=== PATIENT | male | born 1955 | race Caucasian/White ===

== ENCOUNTER 2020-11-23 19:59 | Inpatient (IN) | payer MEDICARE ==
[~2020-11-23] VITALS: Ht 195.6 cm; Wt 163.0 kg
[2020-11-23 20:38] LABS: HEMOGLOBIN 12.5 gm/dl (14.0-17.5); RED BLOOD COUNT 4.16 M/UL (4.20-5.50); WHITE BLOOD COUNT 8.9 K/UL (4.5-11.0)
[2020-11-23 20:55] LABS: BUN/CREATININE RATIO 23 (0-10)
[2020-11-24 04:44] LABS: HEMOGLOBIN 12.2 gm/dl (14.0-17.5); RED BLOOD COUNT 4.25 M/UL (4.20-5.50); WHITE BLOOD COUNT 8.7 K/UL (4.5-11.0)
[2020-11-24 04:53] LABS: BUN/CREATININE RATIO 21 (0-10)
[2020-11-24] MEDS ORDERED: MELATONIN5 M2 PO (10:30)
[2020-11-24] MEDS ORDERED: TRAMADOL HCL50 MG PO (10:31)
[2020-11-24] MEDS ORDERED: BUMETANIDE1 MG PO (10:32)
[2020-11-24] MEDS ORDERED: ALBUTEROL1.25 MG/3 INH (10:33)
[2020-11-24] MEDS ORDERED: ALLOPURINOL300 MG PO (10:33)
[2020-11-24] MEDS ORDERED: ASPIRIN EC81 MG PO (10:34)
[2020-11-24] MEDS ORDERED: ELIQUIS 5 MG TAB5 MG PO (10:34)
[2020-11-24] MEDS ORDERED: COLCRYS0.6 MG PO (10:36)
[2020-11-24] MEDS ORDERED: DILTIAZEM 24HR300 M1 PO (10:38)
[2020-11-24] MEDS ORDERED: CYMBALTA60 MG PO (10:39)
[2020-11-24] MEDS ORDERED: DOXAZOSIN MESYLA2 MG PO (10:39)
[2020-11-24] MEDS ORDERED: FLONASE ALLER15.8 ML (10:40)
[2020-11-24] MEDS ORDERED: GABAPENTIN400 MG PO ×3 (10:43→10:44)
[2020-11-24] MEDS ORDERED: GLIPIZIDE-METF1 EAC2 PO (10:45)
[2020-11-24] MEDS ORDERED: MOBIC7.5 MG PO (10:47)
[2020-11-24] MEDS ORDERED: HYDROCODON-ACE1 EAC6 PO (10:47)
[2020-11-24] MEDS ORDERED: DAILY VALUE1 EACH PO (10:48)
[2020-11-24] MEDS ORDERED: OMEPRAZOLE20 MG PO (10:48)
[2020-11-24] MEDS ORDERED: CRESTOR20 MG PO (10:49)
[2020-11-24] MEDS ORDERED: SILDENAFIL20 MG PO (10:50)
[2020-11-24] MEDS ORDERED: TIZANIDINE HCL4 MG PO (10:51)
[2020-11-24] MEDS ORDERED: VENTOLIN HFA 66.7 GM INH (10:58)
--- NOTE | 2020-11-24 17:40 | NUR ---
1630 NITRO D/C D/T HYPOTENSION 90/60
[2020-11-25 03:13] LABS: BORDETELLA PARAPERTUSSIS Not Detected (Not Detectd); BORDETELLA PERTUSSIS Not Detected (Not Detectd); CHLAMYDIA PNEUMONIAE Not Detected (Not Detectd); CORONAVIRUS HKU1 Not Detected (Not Detectd); CORONAVIRUS NL63 Not Detected (Not Detectd); CORONAVIRUS OC43 Not Detected (Not Detectd); CORONOAVIRUS 229E Not Detected (Not Detectd); HUMAN METAPNEUMOVIRUS Not Detected (Not Detectd); HUMAN RHINOVIRUS/ENTEROVIRUS Not Detected (Not Detectd); INFLUENZA A Not Detected (Not Detectd); INFLUENZA B Not Detected (Not Detectd); MYCOPLASMA PNEUMONIAE Not Detected (Not Detectd); PARAINFLUENZA VIRUS 1 Not Detected (Not Detectd); PARAINFLUENZA VIRUS 2 Not Detected (Not Detectd); PARAINFLUENZA VIRUS 3 Not Detected (Not Detectd); PARAINFLUENZA VIRUS 4 Not Detected (Not Detectd); RESPIRATORY SYNCYTIAL VIRUS Not Detected (Not Detectd)
[2020-11-25 03:32] LABS: HEMOGLOBIN 11.9 gm/dl (14.0-17.5); RED BLOOD COUNT 3.99 M/UL (4.20-5.50)
[2020-11-25 03:39] LABS: WHITE BLOOD COUNT 5.9 K/UL (4.5-11.0)
[2020-11-25 04:05] LABS: SARS-CoV-2 NOT DETECTED (Not Detectd)
--- NOTE | 2020-11-26 20:39 | NUR ---
Report given to Estela BEGUM on [place] [employer].
[2020-11-27 07:20] LABS: BUN/CREATININE RATIO 24 (0-10)
[2020-11-28 04:36] LABS: HEMOGLOBIN 11.1 gm/dl (14.0-17.5); RED BLOOD COUNT 3.8 M/UL (4.20-5.50); WHITE BLOOD COUNT 4.7 K/UL (4.5-11.0)
[2020-11-29 08:18] LABS: BUN/CREATININE RATIO 24 (0-10)
[2020-11-30] MEDS ORDERED: ZAROXOLYN/DIUL2.5 MG PO (12:31)
[2020-11-30] MEDS ORDERED: METOPROLOL SUC100 MG PO (12:42)
[2020-12-17] MEDS ORDERED: LASIX40 MG PO (12:55)
== END 2020-11-30 16:49 | disposition home health service (06) | DRG 291 ==
LOC: ER1 19:59 → CDU 22:37 → MED SURG 4 22:37 → CDU 11-24 12:19 → PROG CARE 11-24 14:24 → MED SURG 4 11-26 22:28
PROVIDERS: Family Medicine; Internal Medicine; Internal Medicine Cardiovascular Disease; Physician Assistant Medical; ADMIT Internal Medicine
DX: I11.0 Hypertensive heart disease with heart failure (principal); J96.21 Acute and chronic respiratory failure with hypoxia; J96.22 Acute and chronic respiratory failure with hypercapnia; Z20.822 Contact with and (suspected) exposure to COVID-19; I48.20 Chronic atrial fibrillation, unspecified; N17.9 Acute kidney failure, unspecified; Z68.41 Body mass index [BMI] 40.0-44.9, adult; I50.33 Acute on chronic diastolic (congestive) heart failure; I48.0 Paroxysmal atrial fibrillation; I27.20 Pulmonary hypertension, unspecified; I16.0 Hypertensive urgency; I25.10 Atherosclerotic heart disease of native coronary artery without angina pectoris; F41.9 Anxiety disorder, unspecified; G47.33 Obstructive sleep apnea (adult) (pediatric); J45.909 Unspecified asthma, uncomplicated; M10.9 Gout, unspecified; E78.5 Hyperlipidemia, unspecified; E11.9 Type 2 diabetes mellitus without complications; E66.01 Morbid (severe) obesity due to excess calories; Z79.01 Long term (current) use of anticoagulants; Z79.82 Long term (current) use of aspirin; Z79.899 Other long term (current) drug therapy; Z90.49 Acquired absence of other specified parts of digestive tract; Z82.49 Family history of ischemic heart disease and other diseases of the circulatory system; Z91.14 Patient's other noncompliance with medication regimen
CPT/HCPCS: 36415; 36600; 71045; 80048; 80053; 82550; 82553; 82803; 82962; 83605; 83735; 83874; 83880; 84484; 85025; 85027; 87040; 87633; 93005; 94640; 94660; 94664; 94760; 96374; 96375; 99285; J0696; J1940; U0002

== ENCOUNTER 2021-02-05 04:37 | Emergency (ER) | payer OTHER, MEDICARE ==
[~2021-02-05 04:37] MED LIST: ALBUTEROL1.25 MG/3 INH; ALLOPURINOL300 MG PO; ASPIRIN EC81 MG PO; BUMETANIDE1 MG PO; COLCRYS0.6 MG PO; CRESTOR20 MG PO; CYMBALTA60 MG PO; DAILY VALUE1 EACH PO; DILTIAZEM 24HR300 M1 PO; DOXAZOSIN MESYLA2 MG PO; ELIQUIS 5 MG TAB5 MG PO; FLONASE ALLER15.8 ML; GABAPENTIN400 MG PO; GLIPIZIDE-METF1 EAC2 PO; HYDROCODON-ACE1 EAC6 PO; LASIX40 MG PO; MELATONIN5 M2 PO; METOPROLOL SUC100 MG PO; MOBIC7.5 MG PO; OMEPRAZOLE20 MG PO; SILDENAFIL20 MG PO; TIZANIDINE HCL4 MG PO; TRAMADOL HCL50 MG PO; VENTOLIN HFA 66.7 GM INH; ZAROXOLYN/DIUL2.5 MG PO
[2021-02-05 04:57] LABS: HEMOGLOBIN 12.8 gm/dl (14.0-17.5); RED BLOOD COUNT 4.74 M/UL (4.20-5.50); WHITE BLOOD COUNT 12.5 K/UL (4.5-11.0)
[2021-02-05 05:20] LABS: BUN/CREATININE RATIO 22 (0-10)
== END 2021-02-05 06:20 ==
LOC: ER1 04:37
PROVIDERS: Family Medicine
DX: R07.9 Chest pain, unspecified (principal); I48.91 Unspecified atrial fibrillation; J44.9 Chronic obstructive pulmonary disease, unspecified; M19.90 Unspecified osteoarthritis, unspecified site; E11.65 Type 2 diabetes mellitus with hyperglycemia; G89.29 Other chronic pain; J96.10 Chronic respiratory failure, unspecified whether with hypoxia or hypercapnia
CPT/HCPCS: 36600; 71045; 72170; 80053; 82550; 82553; 82803; 83874; 83880; 84484; 85025; 90471; 90714; 96374; 99285; J2270